=== PATIENT | male | born 1935 | race Caucasian/White ===

== ENCOUNTER 2018-01-23 09:29 | Inpatient (IN) | payer MEDICARE ==
[2018-01-23 10:03] LABS: #Lymphocytes 0.4 thou/uL (1.20-3.40); #Monocytes 0.5 thou/uL (0.11-0.59); #Neutrophils 12.9 thou/uL (1.40-6.50); %Basophils 0.2 % (0.0-1.0); %Eosinophils 0.1 % (0.0-10.0); %Lymphocytes 2.8 % (21.0-51.0); %Monocytes 3.5 % (0.0-10.0); %Neutrophils 93.4 % (42.0-75.0); Hemoglobin 15.5 g/dL (14.0-18.0); Mean Corpuscular HGB CONC 33.4 g/dL (32.0-36.0); Mean Corpuscular Volume 98.8 fl (80.0-94.0); Mean Platelet Volume 6.7 fL (7.4-10.4); Platelet Count 190 thou/uL (130-400); RBC Distribution Width 12.1 % (11.5-14.5); White Blood Cell (WBC) Count 13.8 thou/uL (4.8-10.8)
[2018-01-23 10:08] LABS: Bilirubin Small (Negative); Blood, Urine Small (Negative); Clarity CLOUDY (Clear); Glucose, Urine (Dipstick) Negative (Negative); Leukocyte Small (Negative); Protein, Urine (Dipstick) 100 mg/dL (Neg-Trace); Specific Gravity, Urine 1.038 (1.002-1.036)
[2018-01-23 10:11] LABS: Bacteria/HPF None Seen HPF (None Seen)
[2018-01-23 10:22] LABS: Nitrite Unable to Interpret (Negative)
[2018-01-23 10:23] LABS: RBC/HPF 0-3 HPF (0-3)
[2018-01-23 10:24] LABS: Crystals/HPF 1+ AMORPH URATES HPF (Negative)
[2018-01-23 10:25] LABS: Renal Epithelial None Seen HPF (0-3); Transitional Epithelial NONE SEEN HPF (0-3)
[2018-01-23 10:26] LABS: ALT (SGPT) 10 U/L (8-55); AST (SGOT) 9 U/L (5-34); Albumin 3.9 g/dL (3.4-4.8); Alkaline Phosphatase 42 U/L (40-150); Anion Gap 12 mmol/L (10-20); BUN (Urea Nitrogen) 24 mg/dL (8.4-25.7); Bilirubin, Total 2.5 mg/dL (0.2-1.2); Calc. Creatinine Clearance 0 mL/min (70-130); Calcium 9.8 mg/dL (7.8-10.44); Carbon Dioxide 30 mmol/L (23-31); Chloride 99 mmol/L (98-107); Estimated GFR-MDRD 72; Globulin 3.5 g/dL (2.4-3.5); Glucose 176 mg/dL (83-110); Lipase 5 U/L (8-78); Potassium 3.7 mmol/L (3.5-5.1); Protein, Total 7.4 g/dL (5.8-8.1); Sodium 137 mmol/L (136-145)
[2018-01-23] MEDS ORDERED: Morphine 4 MG/ML VIAL ONE (11:12)
[2018-01-23] MEDS ORDERED: Ondansetron HCl/PF 4 MG/2 ML Vial ONE (11:14)
--- NOTE | 2018-01-23 11:41 | CT ---
ABDOMEN AND PELVIC CT SCAN WITH IV CONTRAST: Date: 01/23/18 HISTORY: 82-year-old male with history of left lower quadrant abdominal pain, with concern for diverticulitis. FINDINGS: Minimal linear and parenchymal changes in the lung bases, probably representing some chronic change o r mild subsegmental atelectasis. There are two small hypodensities within the liver, too small to def initively characterize, but statistically small cysts. The pancreas, spleen, and adrenal glands are u nremarkable. No renal calculus or acute obstruction. Normal appearing appendix. Evidence for acute diverticulitis in the left colon/sigmoid colon junction. Scattered small punctate foci of extralumin al gas are noted, including some foci free within the peritoneum. There is an approximately 2.3 x 3.8 cm diameter mostly air-filled collection projecting from the colon at this level, probably an at shyam st partially confined perforation. There are abnormally dilated small bowel loops, primarily jejunum and extending into the ileum with s ome dilatation of the stomach and duodenum as well. The exact location of the transition zone is diff icult to determine, but I favor it being in the right side of the abdomen, with a decompressed disc i leum. No renal calculus or acute obstruction. IMPRESSION: Evidence for acute diverticulitis at the left colon/sigmoid colon junction with a small focus of most ly confined, mostly air and minimal fluid, probably at least a partially confined perforation with so me scattered small foci of punctate extraluminal gas including some free intraperitoneal punctate gas . The small perforation would not be amenable to percutaneous drainage. Abnormally dilated small vernon l with nondilated distal small bowel, evidence for small bowel obstruction. The exact transition poin t is difficult to ascertain, but I favor it being more in the right side of the abdomen. Tiny amount of free fluid in the abdomen. Some heterogeneous nodular opacity changes within the gallbladder rais ing the concern for possible small gallstones or sludge, without evidence for gallbladder wall disten tion or pericholecystic fluid or fat stranding. No evidence for other significant acute process. Findings discussed with Dr. Bullard at 1120 hours. CODE CR. POS: [facility]
[2018-01-23] MEDS ORDERED: Piperacillin/Tazobactam 4.5 GM in Sodium Chloride 0.9% 100 ML IVPB SCH (12:15)
[2018-01-23] MEDS ORDERED: Ondansetron HCl/PF 4 MG/2 ML Vial IVP PRN (14:17)
[2018-01-23] MEDS ORDERED: ISOVUE-370 76%-LOCM 1 ML ONE (14:27)
[2018-01-23 14:28] VITALS: BMI 32.5
[2018-01-23] MEDS ORDERED: Prevnar 13-Val Conj/PF 0.5 ML SYRINGE IM ONE (15:00)
[2018-01-23] MEDS: Heparin 5,000 UNITS/ML VIAL SC SCH ×2 (16:10→20:37)
[2018-01-23] MEDS: Sodium Chloride 0.9% 1,000 ML IV SCH (16:10)
[2018-01-23] MEDS ORDERED: hydrALAZINE 20 MG/ML VIAL SLOW IVP PRN (16:58)
[2018-01-23] MEDS ORDERED: Morphine 4 MG/ML VIAL SLOW IVP PRN ×2 (16:58)
--- NOTE | 2018-01-23 19:54 | HP ---
CHIEF COMPLAINT: Small-bowel obstruction, diverticulitis. HISTORY OF PRESENT ILLNESS: This is an 82-year-old male, who presents with a history of pain in his left lower quadrant, described as sharp, associated with abdominal bloating, nausea and vomiting. He did state that he had a bowel movement earlier today. Previous diagnosis of a left lower quadrant d iverticulitis several years ago that resolved without inpatient care. He had colonoscopy a few years ago by Dr. Villegas, which was in normal limits. He is on schedule for those. He denies chronic const ipation, diarrhea or blood in stool. Denies chronic abdominal pain or inflammatory bowel disease. Chriss adams feels better on his abdominal distention after NG tube is placed. 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 PAST SURGICAL HISTORY: Right knee replacement. MEDICINES TAKEN DAILY: Celebrex. ALLERGIES: No known drug allergies. SOCIAL HISTORY: No smoking, alcohol or other drugs. He is . REVIEW OF SYSTEMS: Ten system review of systems otherwise negative unless described above. PHYSICAL EXAMINATION: VITAL SIGNS: Blood pressure 170/93, pulse 76, respirations 16. He is afebrile at 98.7. HEENT: Sclerae are anicteric. Oropharynx is clear. NECK: No lymphadenopathy. CHEST: Clear. HEART: Regular rate and rhythm. ABDOMEN: Soft, diffusely distended and mildly tender without guarding or rebound. No abdominal or i nguinal hernias. EXTREMITIES: No ischemia or edema to extremities. IMAGING: CT scan of the abdomen and pelvis reveals acute diverticulitis confined small free air, que stion of small-bowel obstruction. LABORATORY DATA: White cell count is 13, hemoglobin 15, platelet count is 190. Sodium 137, potassiu m 3.7, creatinine 1. His UA is positive for bilirubin, leukocyte esterase, wbc's. ASSESSMENT: Acute diverticulitis, likely with secondary ileus or small-bowel obstruction. PLAN: NG tube, n.p.o., IV fluids, broad spectrum antibiotics include Zosyn. We will give him a castro ce with a few days of conservative therapy with IV antibiotics. If not improved in 24-48 hours, he m ay need operation for this, which likely would involve some sort of diversion ostomy procedure. He i s stable now with no signs of sepsis.
[2018-01-23] MEDS: Acetaminophen 1,000 MG in Premix Bag 1 BAG IVPB PRN (20:26)
[2018-01-23] MEDS ORDERED: Sodium Chloride 0.65% Nasal 44 ML BOT EA NARE PRN (20:27)
[2018-01-23] MEDS ORDERED: Oxymetazoline HCl 0.05% ( 15 ML ) NASAL PRN (20:27)
[2018-01-23] MEDS: hydrALAZINE 20 MG/ML VIAL SLOW IVP PRN (20:33)
[2018-01-23] MEDS ORDERED: Famotidine/PF 20 mg/2ml Vial SLOW IVP SCH (21:00)
[2018-01-23] MEDS: Pantoprazole 40 MG VIAL IVP SCH (21:50)
[2018-01-23] MEDS: Piperacillin/Tazobactam 4.5 GM in Sodium Chloride 0.9% 100 ML IVPB SCH (21:53)
[2018-01-24] MEDS: Piperacillin/Tazobactam 4.5 GM in Sodium Chloride 0.9% 100 ML IVPB SCH ×4 (03:20→21:56)
[2018-01-24] MEDS: hydrALAZINE 20 MG/ML VIAL SLOW IVP PRN (03:28)
[2018-01-24] MEDS: Sodium Chloride 0.9% 1,000 ML IV SCH ×2 (03:37→18:17)
[2018-01-24 05:50] LABS: #Lymphocytes 0.3 thou/uL (1.20-3.40); #Monocytes 0.6 thou/uL (0.11-0.59); #Neutrophils 6.3 thou/uL (1.40-6.50); %Eosinophils 0.1 % (0.0-10.0); %Lymphocytes 4.5 % (21.0-51.0); %Monocytes 8.3 % (0.0-10.0); %Neutrophils 87.2 % (42.0-75.0); Hemoglobin 15.7 g/dL (14.0-18.0); Mean Corpuscular HGB CONC 31.9 g/dL (32.0-36.0); Mean Corpuscular Hemoglobin 32.5 pg (27.0-31.0); Mean Platelet Volume 7.2 fL (7.4-10.4); Platelet Count 214 thou/uL (130-400); RBC Distribution Width 12.3 % (11.5-14.5); Red Blood Cell (RBC) Count 4.82 mill/uL (4.70-6.10); White Blood Cell (WBC) Count 7.2 thou/uL (4.8-10.8)
[2018-01-24 06:11] LABS: ALT (SGPT) 9 U/L (8-55); AST (SGOT) 9 U/L (5-34); Albumin 3.7 g/dL (3.4-4.8); Alkaline Phosphatase 34 U/L (40-150); Anion Gap 13 mmol/L (10-20); BUN (Urea Nitrogen) 25 mg/dL (8.4-25.7); Bilirubin, Total 2.1 mg/dL (0.2-1.2); Calc. Creatinine Clearance 90 mL/min (70-130); Calcium 9.4 mg/dL (7.8-10.44); Carbon Dioxide 29 mmol/L (23-31); Chloride 103 mmol/L (98-107); Estimated GFR-MDRD 82; Globulin 3.1 g/dL (2.4-3.5); Glucose 140 mg/dL (83-110); Potassium 3.7 mmol/L (3.5-5.1); Protein, Total 6.8 g/dL (5.8-8.1); Sodium 141 mmol/L (136-145)
[2018-01-24] MEDS: Heparin 5,000 UNITS/ML VIAL SC SCH ×3 (08:29→21:57)
--- NOTE | 2018-01-24 08:47 | PDOC.GSPN ---
Surgery Progress Note: Subj - Subjective Narrative: No complaints. Minimal pain. Wants NG out. No flatus or bm Surgery Progress Note: Obj - Vital signs Vital signs: Vital Signs - Most Recent Temp Pulse Resp BP Pulse Ox 98.3 F 92 18 159/80 H 92 L 01/24/18 07:39 01/24/18 07:39 01/24/18 07:39 01/24/18 07:39 01/24/18 07:39 - Physical Exam General: no distress Cardiovascular: regular rate and rhythm Respiratory: clear to auscultation Abdomen: soft, non tender, distended Surgery Progress Note: Results - Labs Result Diagrams: 01/24/18 05:23 01/24/18 05:23 Lab results: Laboratory Results - last 24 hr 01/24/18 01/24/18 05:23 05:23 WBC 7.2 RBC 4.82 Hgb 15.7 Hct 49.2 MCV 102.0 H MCH 32.5 H MCHC 31.9 L RDW 12.3 Plt Count 214 MPV 7.2 L Neutrophils % 87.2 H Lymphocytes % 4.5 L Monocytes % 8.3 Eosinophils % 0.1 Basophils % 0.0 Neutrophils # 6.3 Lymphocytes # 0.3 L Monocytes # 0.6 H Eosinophils # 0.0 Basophils # 0.0 Sodium 141 Potassium 3.7 Chloride 103 Carbon Dioxide 29 Anion Gap 13 BUN 25 Creatinine 0.89 Estimated GFR (MDRD) 82 Glucose 140 H Calcium 9.4 Total Bilirubin 2.1 H AST 9 ALT 9 Alkaline Phosphatase 34 L Serum Total Protein 6.8 Albumin 3.7 Globulin 3.1 Albumin/Globulin Ratio 1.2 Surgery Progress Note: A/P - Problem (1) Diverticulitis Current Visit: Yes Code(s): K57.92 - DVTRCLI OF INTEST, PART UNSP, W/O PERF OR ABSCESS W/O BLEED Status: Acute Assessment and Plan: Continue Zosyn. Not complicated. Would normally expect to resolve without surgery. In his case issue is secondary SBO which is stable but not improved. SBFT tomorrow if no significant improvement (2) Small bowel obstruction Current Visit: Yes Code(s): K56.609 - UNSP INTESTNL OBST, UNSP TO PARTIAL VERSUS COMPLETE OBST Status: Acute
[2018-01-24] MEDS: Acetaminophen 1,000 MG in Premix Bag 1 BAG IVPB PRN (09:33)
--- NOTE | 2018-01-24 14:10 | PDOC.PN ---
- Subjective Encounter Start Date: 01/24/18 Encounter Start Time: 14:00 Subjective: Feels better.. - Objective Resuscitation Status: Resuscitation Status FULL:Full Resuscitation Vital Signs & Weight: Vital Signs (12 hours) Temp Pulse Resp BP BP Pulse Ox 01/24/18 11:15 98.9 F 87 18 167/89 H 92 L 01/24/18 08:00 98.3 F 92 18 01/24/18 07:39 98.3 F 92 18 159/80 H 92 L 01/24/18 04:06 98.6 F 85 18 176/87 H 94 L 01/24/18 03:28 87 176/87 H I&O: 01/23/18 01/24/18 01/25/18 06:59 06:59 06:59 Intake Total 900 Output Total 1300 Balance -400 Result Diagrams: 01/24/18 05:23 01/24/18 05:23 Phys Exam - Physical Examination HEENT: PERRLA Neck: no JVD Respiratory: clear to auscultation bilateral Cardiovascular: RRR Gastrointestinal: soft (Tender to palpation.) Neurological: moves all 4 limbs Psychiatric: A&O x 3 Dx/Plan (1) Diverticulitis Code(s): K57.92 - DVTRCLI OF INTEST, PART UNSP, W/O PERF OR ABSCESS W/O BLEED Status: Acute Plan: Continue antibiotics.. (2) Small bowel obstruction Code(s): K56.609 - UNSP INTESTNL OBST, UNSP TO PARTIAL VERSUS COMPLETE OBST Status: Acute Plan: f/u with surgery. NGT in place. - Plan -: Continue current management... * .
[2018-01-24] MEDS: Pantoprazole 40 MG VIAL IVP SCH (21:56)
[2018-01-25] MEDS: Piperacillin/Tazobactam 4.5 GM in Sodium Chloride 0.9% 100 ML IVPB SCH ×4 (03:16→21:01)
[2018-01-25] MEDS: Sodium Chloride 0.9% 1,000 ML IV SCH ×2 (03:16→15:28)
[2018-01-25 04:31] LABS: #Lymphocytes 0.6 thou/uL (1.20-3.40); #Monocytes 0.7 thou/uL (0.11-0.59); #Neutrophils 4.6 thou/uL (1.40-6.50); %Basophils 0.1 % (0.0-1.0); %Eosinophils 0.6 % (0.0-10.0); %Lymphocytes 9.9 % (21.0-51.0); %Monocytes 11.2 % (0.0-10.0); %Neutrophils 78.3 % (42.0-75.0); Hemoglobin 14.6 g/dL (14.0-18.0); Mean Corpuscular HGB CONC 32.5 g/dL (32.0-36.0); Mean Corpuscular Hemoglobin 33.1 pg (27.0-31.0); Mean Platelet Volume 7.2 fL (7.4-10.4); Platelet Count 205 thou/uL (130-400); RBC Distribution Width 12.2 % (11.5-14.5); Red Blood Cell (RBC) Count 4.41 mill/uL (4.70-6.10); White Blood Cell (WBC) Count 5.8 thou/uL (4.8-10.8)
[2018-01-25 04:42] LABS: ALT (SGPT) 8 U/L (8-55); AST (SGOT) 14 U/L (5-34); Albumin 3.4 g/dL (3.4-4.8); Alkaline Phosphatase 31 U/L (40-150); Anion Gap 12 mmol/L (10-20); BUN (Urea Nitrogen) 30 mg/dL (8.4-25.7); Bilirubin, Total 1.7 mg/dL (0.2-1.2); Calc. Creatinine Clearance 86 mL/min (70-130); Carbon Dioxide 30 mmol/L (23-31); Chloride 105 mmol/L (98-107); Estimated GFR-MDRD 78; Globulin 2.7 g/dL (2.4-3.5); Glucose 113 mg/dL (83-110); Potassium 3.8 mmol/L (3.5-5.1); Protein, Total 6.1 g/dL (5.8-8.1); Sodium 143 mmol/L (136-145)
[2018-01-25] MEDS: Heparin 5,000 UNITS/ML VIAL SC SCH ×3 (08:03→20:40)
--- NOTE | 2018-01-25 10:20 | PRG ---
DATE OF SERVICE: 01/25/2018 SUBJECTIVE: Mr. Gould feels better with less distention. He has passed a small amount of gas wit hout bowel movement. He is starting to be hungry. OBJECTIVE: VITAL SIGNS: Blood pressure is 164/90, pulse 70, respirations 18. He is afebrile. Urine output mul tiple voids. NG output 850 overnight. ASSESSMENT: 1. Acute diverticulitis, mild to moderate, improved with normal WBC, afebrile. Pain improved. 2. Small bowel obstruction secondary to #1 with moderate persistent NG output. PLAN: Gastrografin small bowel follow through today. Even though his diverticulitis does not seem s urgical at this time, if he has persistent high NG output with no passage of Gastrografin, he may nee d surgery for the bowel obstruction. We will obtain the small bowel follow through today and follow up on those results.
--- NOTE | 2018-01-25 10:46 | PDOC.PN ---
- Subjective Encounter Start Date: 01/25/18 Encounter Start Time: 10:00 Subjective: No complaint. -: Had BM earlier. - Objective Resuscitation Status: Resuscitation Status FULL:Full Resuscitation Vital Signs & Weight: Vital Signs (12 hours) Temp Pulse Resp BP Pulse Ox 01/25/18 07:12 98.5 F 70 18 164/90 H 91 L 01/25/18 03:21 98.0 F 72 18 157/69 H 91 L 01/24/18 23:22 99.5 F 82 16 157/90 H 95 I&O: 01/24/18 01/25/18 01/26/18 06:59 06:59 06:59 Intake Total 900 900 Output Total 1300 1900 Balance -400 -1000 Result Diagrams: 01/25/18 03:15 01/25/18 03:15 Phys Exam - Physical Examination HEENT: sclera anicteric Neck: no JVD Respiratory: clear to auscultation bilateral Cardiovascular: RRR Gastrointestinal: soft, positive bowel sounds Musculoskeletal: no edema Neurological: moves all 4 limbs Psychiatric: A&O x 3 Dx/Plan (1) Diverticulitis Code(s): K57.92 - DVTRCLI OF INTEST, PART UNSP, W/O PERF OR ABSCESS W/O BLEED Status: Acute Plan: Continue antibiotics. (2) Small bowel obstruction Code(s): K56.609 - UNSP INTESTNL OBST, UNSP TO PARTIAL VERSUS COMPLETE OBST Status: Acute Plan: f/u with surgery. Comment: Had bowel movement earlier. - Plan -: Continue antibiotics. -: f/u with surgery. * .
[2018-01-25] MEDS ORDERED: MD-Gastroview 120 ML BOT ONE (14:43)
[2018-01-25] MEDS: Pantoprazole 40 MG VIAL IVP SCH (20:40)
--- NOTE | 2018-01-25 20:50 | RAD ---
SMALL BOWEL STUDY: 01/25/2018 HISTORY: Small bowel obstruction. FINDINGS: [place] Pipe view of the abdomen demonstrates a nasogastric tube in place, with the tip overlying the expect ed location of the body of the stomach. There is significant gaseous distention of multiple loops of small bowel within the abdomen. Gastrografin was administered via the nasogastric tube and, again, post oral contrast administration demonstrates multiple dilated loops of small bowel. Contrast does not significantly progress through the small bowel on a 9 hour delayed image, suggesting a small vernon l obstruction. 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 Contrast is seen in the urinary bladder, likely related to a prior contrasted study. IMPRESSION: Small bowel obstruction. While ileus is a possibility, there are more decompressed loops of small alison wel seen on prior CT examination, and findings are more suggestive of a high grade partial small vernon l obstruction. POS: [facility]
[2018-01-26] MEDS: Piperacillin/Tazobactam 4.5 GM in Sodium Chloride 0.9% 100 ML IVPB SCH ×4 (04:16→22:26)
[2018-01-26 05:18] LABS: #Lymphocytes 0.8 thou/uL (1.20-3.40); #Monocytes 0.9 thou/uL (0.11-0.59); #Neutrophils 5.4 thou/uL (1.40-6.50); %Basophils 0.1 % (0.0-1.0); %Eosinophils 0.3 % (0.0-10.0); %Lymphocytes 11.7 % (21.0-51.0); %Monocytes 13.1 % (0.0-10.0); %Neutrophils 74.9 % (42.0-75.0); Mean Corpuscular HGB CONC 32.6 g/dL (32.0-36.0); Mean Corpuscular Hemoglobin 32.6 pg (27.0-31.0); Mean Platelet Volume 6.8 fL (7.4-10.4); Platelet Count 205 thou/uL (130-400); RBC Distribution Width 12.1 % (11.5-14.5); White Blood Cell (WBC) Count 7.2 thou/uL (4.8-10.8)
[2018-01-26 05:31] LABS: ALT (SGPT) 10 U/L (8-55); AST (SGOT) 14 U/L (5-34); Albumin 3.4 g/dL (3.4-4.8); Alkaline Phosphatase 27 U/L (40-150); Anion Gap 11 mmol/L (10-20); BUN (Urea Nitrogen) 35 mg/dL (8.4-25.7); Bilirubin, Total 1.1 mg/dL (0.2-1.2); Calc. Creatinine Clearance 78 mL/min (70-130); Calcium 8.8 mg/dL (7.8-10.44); Carbon Dioxide 32 mmol/L (23-31); Chloride 108 mmol/L (98-107); Estimated GFR-MDRD 69; Globulin 2.8 g/dL (2.4-3.5); Glucose 108 mg/dL (83-110); Potassium 3.1 mmol/L (3.5-5.1); Protein, Total 6.2 g/dL (5.8-8.1); Sodium 148 mmol/L (136-145)
[2018-01-26] MEDS ORDERED: Potassium Chloride 20 MEQ/100 ML PREMIX BAG IVPB SCH (07:30)
[2018-01-26] MEDS: Sodium Chloride 0.9% 1,000 ML IV SCH (08:40)
[2018-01-26] MEDS: D5 1/2 NS w/20 mEq KCL 1,000 ML IV SCH (09:57)
[2018-01-26] MEDS: Heparin 5,000 UNITS/ML VIAL SC SCH ×3 (10:21→20:36)
--- NOTE | 2018-01-26 12:24 | PRG ---
DATE OF SERVICE: 01/26/2018 SUBJECTIVE: Mr. Gould had several bowel movements overnight. He feels less bloated. He states t hat he is passing gas. PHYSICAL EXAMINATION: VITAL SIGNS: Blood pressure 175/84, pulse 66, respirations 16. He is afebrile. NG output was eleva malachi overnight to 1100, but some of that was contrast and he has been doing lots of ice chips. ABDOMEN: Less distended with active bowel sounds and nontender. LABORATORY DATA: White blood cell count is 7, hemoglobin 14, platelet count is 205, normal different ial. Creatinine 1.03. Sodium is 148, potassium 3.1. ASSESSMENT: Small bowel follow through from yesterday showed no contrast in the colon after several hours; however, repeat film not performed this morning. ASSESSMENT: 1. Partial small bowel obstruction secondary to diverticulitis. 2. Diverticulitis, improved with normal white count, improving pain. PLAN: We will attempt to clamp NG tube. I have held off on surgery for today. Now that his bowel f unction appears to be returning, possible discontinue NG later today and start clear liquids. If he tolerates that and the NG tube is able to be discontinued, he likely will go home in the next 24-48 h ours on oral antibiotics.
[2018-01-26] MEDS: hydrALAZINE 20 MG/ML VIAL SLOW IVP PRN (13:54)
[2018-01-26] MEDS ORDERED: Artificial Tears 18 DROP/0.9 ML EA EYE PRN (17:08)
[2018-01-26] MEDS: Pantoprazole 40 MG VIAL IVP SCH (20:36)
--- NOTE | 2018-01-26 21:54 | PDOC.PN ---
- Subjective Encounter Start Date: 01/26/18 Encounter Start Time: 11:30 Patient seen and examined. No new complaints. No overnight events. No abd pain. Had BM - Objective Resuscitation Status: Resuscitation Status FULL:Full Resuscitation MAR Reviewed: Yes Vital Signs & Weight: Vital Signs (12 hours) Temp Pulse Resp BP BP Pulse Ox 01/26/18 20:00 97.7 F 78 16 147/74 H 95 01/26/18 16:50 72 148/76 H 01/26/18 16:06 73 181/96 H 01/26/18 16:00 98.1 F 73 15 181/96 H 92 L 01/26/18 13:54 68 185/97 H 01/26/18 11:30 97.6 F 68 16 185/97 H 97 I&O: 01/25/18 01/26/18 01/27/18 06:59 06:59 06:59 Intake Total 441 573 3558 Output Total 1900 2950 Balance -1000 -2049 2160 Result Diagrams: 01/27/18 03:23 01/27/18 03:23 Additional Labs: Accuchecks 01/26/18 01/26/18 18:08 12:18 POC Glucose 97 94 Phys Exam - Physical Examination Constitutional: NAD Respiratory: no wheezing, no rhonchi Cardiovascular: RRR, no rub Gastrointestinal: soft, non-tender, positive bowel sounds Musculoskeletal: no edema Dx/Plan - Plan DVT proph w/heparin, DVT proph w/SCDs IMPRESSION: 1. Acute complicated diverticulitis 2. SBO 3. Hypokalemia 4. 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 Other issues per previous notes PLAN: * Cont NG * Cont Atbx * Walking program * Replace Potassium * Cont current meds as below * Cont to monitor Review of Systems - Review of Systems Respiratory: negative: Cough, Dry, Shortness of Breath, Hemoptysis, SOB with Excertion, Pleuritic Pain, Sputum, Wheezing Cardiovascular: negative: chest pain, palpitations, orthopnea, paroxysmal nocturnal dyspnea, edema, light headedness, other - Medications/Allergies Allergies/Adverse Reactions: Allergies Allergy/AdvReac Type Severity Reaction Status Date / Time No Known Drug Allergies Allergy Verified 01/23/18 12:01 Medications: Current Medications Artificial Tears (Tears Naturale) 0 drop EA EYE PRN PRN PRN Reason: Dry Eyes Last Admin: 01/26/18 18:50 Dose: 2 drop Heparin Sodium (Porcine) (Heparin) 5,000 units SC TID [facility] Last Admin: 01/26/18 20:36 Dose: 5,000 units Hydralazine HCl (Apresoline) 10 mg SLOW IVP Q4H PRN PRN Reason: SBP Greater Than 170 Last Admin: 01/26/18 13:54 Dose: 10 mg Hydralazine HCl (Apresoline) 20 mg SLOW IVP Q6H PRN PRN Reason: SBP Greater Than 170 Last Admin: 01/26/18 16:06 Dose: 20 mg Piperacillin Sod/Tazobactam (Sod 4.5 gm/ Sodium Chloride) 100 mls @ 200 mls/hr IVPB 0400,1000,1600,2200 [facility] Last Admin: 01/26/18 16:12 Dose: 100 mls Potassium Chloride/Dextrose/Sod Cl (D5 1/2 Ns W/20 Meq Kcl) 1,000 mls @ 75 mls/ hr IV .[id number] [facility] Last Admin: 01/26/18 09:57 Dose: 1,000 mls Morphine Sulfate (Morphine) 2 mg SLOW IVP Q2H PRN PRN Reason: Mild-Moderate Pain (1-5) Morphine Sulfate (Morphine) 4 mg SLOW IVP Q2H PRN PRN Reason: Moderate to Severe Pain (6-10) Last Admin: 01/25/18 15:39 Dose: 4 mg Ondansetron HCl (Zofran) 4 mg IVP Q6H PRN PRN Reason: Nausea/Vomiting Last Admin: 01/25/18 13:03 Dose: 4 mg Oxymetazoline HCl (Oxymetazoline Hcl) 1 sprays NASAL BID PRN PRN Reason: Nasal Congestion Pantoprazole Sodium (Protonix) 40 mg IVP 2100 [facility] Last Admin: 01/26/18 20:36 Dose: 40 mg Sodium Chloride ([place] Nasal [place] 0.65%) 1 ml EA NARE TID PRN PRN Reason: Nasal Congestion
[2018-01-27] MEDS: Piperacillin/Tazobactam 4.5 GM in Sodium Chloride 0.9% 100 ML IVPB SCH ×4 (03:24→21:09)
[2018-01-27] MEDS: D5 1/2 NS w/20 mEq KCL 1,000 ML IV SCH ×2 (03:24→14:40)
[2018-01-27 04:04] LABS: #Eosinphils 0.1 thou/uL (0.0-0.7); #Lymphocytes 1.1 thou/uL (1.20-3.40); #Monocytes 0.9 thou/uL (0.11-0.59); %Basophils 0.1 % (0.0-1.0); %Eosinophils 1.3 % (0.0-10.0); %Lymphocytes 11.8 % (21.0-51.0); %Monocytes 9.4 % (0.0-10.0); %Neutrophils 77.3 % (42.0-75.0); Hemoglobin 13.9 g/dL (14.0-18.0); Mean Corpuscular HGB CONC 33.5 g/dL (32.0-36.0); Mean Corpuscular Hemoglobin 33.3 pg (27.0-31.0); Mean Corpuscular Volume 99.2 fl (80.0-94.0); Mean Platelet Volume 6.9 fL (7.4-10.4); Platelet Count 215 thou/uL (130-400); RBC Distribution Width 12.2 % (11.5-14.5); Red Blood Cell (RBC) Count 4.17 mill/uL (4.70-6.10)
[2018-01-27 04:13] LABS: ALT (SGPT) 10 U/L (8-55); AST (SGOT) 16 U/L (5-34); Albumin 3.1 g/dL (3.4-4.8); Alkaline Phosphatase 29 U/L (40-150); Anion Gap 7 mmol/L (10-20); BUN (Urea Nitrogen) 24 mg/dL (8.4-25.7); Bilirubin, Total 1.4 mg/dL (0.2-1.2); Calc. Creatinine Clearance 89 mL/min (70-130); Calcium 8.3 mg/dL (7.8-10.44); Carbon Dioxide 33 mmol/L (23-31); Chloride 105 mmol/L (98-107); Estimated GFR-MDRD 81; Globulin 2.5 g/dL (2.4-3.5); Glucose 107 mg/dL (83-110); Magnesium 2.1 mg/dL (1.6-2.6); Phosphorus 2.8 mg/dL (2.3-4.7); Protein, Total 5.6 g/dL (5.8-8.1); Sodium 142 mmol/L (136-145)
[2018-01-27] MEDS ORDERED: Potassium Chloride 20 MEQ TAB PO SCH ×2 (08:00→21:00)
[2018-01-27] MEDS: Saccharomyces boulardii 250 MG CAP PO SCH (08:58)
[2018-01-27] MEDS: Potassium Chloride 20 MEQ TAB PO SCH ×3 (08:58→16:43)
[2018-01-27] MEDS: Heparin 5,000 UNITS/ML VIAL SC SCH ×3 (08:59→21:08)
--- NOTE | 2018-01-27 11:29 | PDOC.GSPN ---
Surgery Progress Note: Subj - Subjective Narrative: No nausea, tolerated overnight with NG out Surgery Progress Note: Obj - Vital signs Vital signs: Vital Signs - Most Recent Temp Pulse Resp BP Pulse Ox 97.7 F 73 22 H 156/88 H 96 01/27/18 08:50 01/27/18 08:50 01/27/18 08:50 01/27/18 08:00 01/27/18 08:50 - Physical Exam General: no distress Cardiovascular: regular rate and rhythm Respiratory: clear to auscultation Abdomen: soft, nondistended, positive bowel sounds Surgery Progress Note: Results - Labs Result Diagrams: 01/27/18 03:23 01/27/18 03:23 Lab results: Laboratory Results - last 24 hr 01/27/18 01/27/18 03:23 03:23 WBC 9.0 RBC 4.17 L Hgb 13.9 L Hct 41.4 L MCV 99.2 H MCH 33.3 H MCHC 33.5 RDW 12.2 Plt Count 215 MPV 6.9 L Neutrophils % 77.3 H Lymphocytes % 11.8 L Monocytes % 9.4 Eosinophils % 1.3 Basophils % 0.1 Neutrophils # 7.0 H Lymphocytes # 1.1 L Monocytes # 0.9 H Eosinophils # 0.1 Basophils # 0.0 Sodium 142 Potassium 3.0 L Chloride 105 Carbon Dioxide 33 H Anion Gap 7 L BUN 24 Creatinine 0.90 Estimated GFR (MDRD) 81 Glucose 107 Calcium 8.3 Phosphorus 2.8 Magnesium 2.1 Total Bilirubin 1.4 H AST 16 ALT 10 Alkaline Phosphatase 29 L Serum Total Protein 5.6 L Albumin 3.1 L Globulin 2.5 Albumin/Globulin Ratio 1.2 Surgery Progress Note: A/P - Problem (1) Diverticulitis Current Visit: Yes Code(s): K57.92 - DVTRCLI OF INTEST, PART UNSP, W/O PERF OR ABSCESS W/O BLEED Status: Acute (2) Small bowel obstruction Current Visit: Yes Code(s): K56.609 - UNSP INTESTNL OBST, UNSP TO PARTIAL VERSUS COMPLETE OBST Status: Acute - Plan Plan: Full liquids. Diverticultitis stable
[2018-01-27] MEDS ORDERED: D5 1/2 NS w/20 mEq KCL 1,000 ML IV SCH (16:23)
--- NOTE | 2018-01-27 16:27 | PDOC.PN ---
- Subjective Encounter Start Date: 01/27/18 Encounter Start Time: 15:00 Patient seen and examined. No new complaints. No overnight events. Still has some lower abd discomfort - constant - not worse compared to yesterday - Objective Resuscitation Status: Resuscitation Status FULL:Full Resuscitation MAR Reviewed: Yes Vital Signs & Weight: Vital Signs (12 hours) Temp Pulse Resp BP Pulse Ox 01/27/18 11:15 98.0 F 64 20 169/93 H 96 01/27/18 08:50 97.7 F 73 22 H 96 01/27/18 08:00 97.7 F 73 22 H 156/88 H 96 I&O: 01/26/18 01/27/18 01/28/18 06:59 06:59 06:59 Intake Total 900 2160 Output Total 2950 Balance -2049 2160 Result Diagrams: 01/27/18 03:23 01/27/18 03:23 Additional Labs: Accuchecks 01/26/18 18:08 POC Glucose 97 Phys Exam - Physical Examination Constitutional: NAD Respiratory: no wheezing, no rales, no rhonchi Cardiovascular: RRR, no rub Gastrointestinal: soft, positive bowel sounds mild tend in lower quadrants Musculoskeletal: no edema Neurological: non-focal, moves all 4 limbs Psychiatric: A&O x 3 Dx/Plan - Plan continue antibiotics, out of bed/ambulate, DVT proph w/heparin, DVT proph w/SCDs IMPRESSION: 1. Acute complicated diverticulitis 2. SBO 3. Hypokalemia 4. 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 Other issues per previous notes PLAN: * Cont Atbx * Replace Potassium * Cont current meds as below * Cont to monitor * NG discontinued Review of Systems - Review of Systems Respiratory: negative: Cough, Dry, Shortness of Breath, Hemoptysis, SOB with Excertion, Pleuritic Pain, Sputum, Wheezing Cardiovascular: negative: chest pain, palpitations, orthopnea, paroxysmal nocturnal dyspnea, edema, light headedness, other - Medications/Allergies Allergies/Adverse Reactions: Allergies Allergy/AdvReac Type Severity Reaction Status Date / Time No Known Drug Allergies Allergy Verified 01/23/18 12:01 Medications: Current Medications Artificial Tears (Tears Naturale) 0 drop EA EYE PRN PRN PRN Reason: Dry Eyes Last Admin: 01/26/18 18:50 Dose: 2 drop Heparin Sodium (Porcine) (Heparin) 5,000 units SC TID [facility] Last Admin: 01/27/18 08:59 Dose: 5,000 units Hydralazine HCl (Apresoline) 10 mg SLOW IVP Q4H PRN PRN Reason: SBP Greater Than 170 Last Admin: 01/26/18 13:54 Dose: 10 mg Hydralazine HCl (Apresoline) 20 mg SLOW IVP Q6H PRN PRN Reason: SBP Greater Than 170 Last Admin: 01/26/18 16:06 Dose: 20 mg Piperacillin Sod/Tazobactam (Sod 4.5 gm/ Sodium Chloride) 100 mls @ 200 mls/hr IVPB 0400,1000,1600,2200 [facility] Last Admin: 01/27/18 09:00 Dose: 100 mls Potassium Chloride/Dextrose/Sod Cl (D5 1/2 Ns W/20 Meq Kcl) 1,000 mls @ 30 mls/ hr IV .Q24H [facility] Morphine Sulfate (Morphine) 2 mg SLOW IVP Q2H PRN PRN Reason: Mild-Moderate Pain (1-5) Ondansetron HCl (Zofran) 4 mg IVP Q6H PRN PRN Reason: Nausea/Vomiting Last Admin: 01/25/18 13:03 Dose: 4 mg Oxymetazoline HCl (Oxymetazoline Hcl) 1 sprays NASAL BID PRN PRN Reason: Nasal Congestion Pantoprazole Sodium (Protonix) 40 mg PO DAILY [facility] Last Admin: 01/27/18 08:58 Dose: 40 mg Potassium Chloride (K-Dur) 20 meq PO TID-WM [facility] Last Admin: 01/27/18 12:24 Dose: 20 meq Potassium Chloride (K-Dur) 20 meq PO HS [facility] Stop: 01/27/18 21:01 Saccharomyces Boulardii (Florastor) 250 mg PO DAILY [facility] Last Admin: 01/27/18 08:58 Dose: 250 mg Sodium Chloride ([place] Nasal [place] 0.65%) 1 ml EA NARE TID PRN PRN Reason: Nasal Congestion Sodium Chloride (Flush - Normal Saline) 10 ml IVF Q12HR [facility] Last Admin: 01/27/18 09:00 Dose: Not Given Sodium Chloride (Flush - Normal Saline) 10 ml IVF PRN PRN PRN Reason: Saline Flush
[2018-01-28] MEDS: Piperacillin/Tazobactam 4.5 GM in Sodium Chloride 0.9% 100 ML IVPB SCH ×2 (04:51→08:57)
[2018-01-28 05:52] LABS: #Eosinphils 0.1 thou/uL (0.0-0.7); #Lymphocytes 1.3 thou/uL (1.20-3.40); #Monocytes 0.8 thou/uL (0.11-0.59); #Neutrophils 7.6 thou/uL (1.40-6.50); %Basophils 0.1 % (0.0-1.0); %Eosinophils 1.4 % (0.0-10.0); %Lymphocytes 12.8 % (21.0-51.0); %Monocytes 8.6 % (0.0-10.0); %Neutrophils 77.1 % (42.0-75.0); Hemoglobin 14.2 g/dL (14.0-18.0); Mean Corpuscular Hemoglobin 32.6 pg (27.0-31.0); Mean Corpuscular Volume 98.6 fl (80.0-94.0); Mean Platelet Volume 6.5 fL (7.4-10.4); Platelet Count 205 thou/uL (130-400); RBC Distribution Width 12.1 % (11.5-14.5); Red Blood Cell (RBC) Count 4.35 mill/uL (4.70-6.10); White Blood Cell (WBC) Count 9.8 thou/uL (4.8-10.8)
[2018-01-28 06:14] LABS: ALT (SGPT) 12 U/L (8-55); AST (SGOT) 17 U/L (5-34); Albumin 3.1 g/dL (3.4-4.8); Alkaline Phosphatase 28 U/L (40-150); Anion Gap 11 mmol/L (10-20); BUN (Urea Nitrogen) 13 mg/dL (8.4-25.7); Bilirubin, Total 1.7 mg/dL (0.2-1.2); Calc. Creatinine Clearance 106 mL/min (70-130); Calcium 8.1 mg/dL (7.8-10.44); Carbon Dioxide 26 mmol/L (23-31); Chloride 106 mmol/L (98-107); Estimated GFR-MDRD Greater than 90; Globulin 2.4 g/dL (2.4-3.5); Glucose 102 mg/dL (83-110); Potassium 3.7 mmol/L (3.5-5.1); Protein, Total 5.5 g/dL (5.8-8.1); Sodium 139 mmol/L (136-145)
[2018-01-28] MEDS: Saccharomyces boulardii 250 MG CAP PO SCH (08:56)
[2018-01-28] MEDS: Heparin 5,000 UNITS/ML VIAL SC SCH (08:57)
[2018-01-28] MEDS: Potassium Chloride 20 MEQ TAB PO SCH (08:57)
[2018-01-28 11:43] VITALS: BP 162/84; TEMP 98.2
--- NOTE | 2018-01-29 00:04 | DIS ---
DATE OF ADMISSION: 01/23/2018 DATE OF DISCHARGE: 01/28/2018 ADMITTING DIAGNOSES: 1. Diverticulitis with microperforation. 2. Small-bowel obstruction. DISCHARGE DIAGNOSES: 1. Diverticulitis with microperforation. 2. Small-bowel obstruction. PROCEDURES: None. CONDITION AT DISCHARGE: Improved. STAFF: Yao Glass M.D. DISCHARGE MEDICINES: Include Cipro 500 twice a day, Flagyl 500 three times a day for 2 more weeks, a s well as Zofran. They were all sent to his pharmacy [facility] on . HOSPITAL COURSE: The patient was admitted with small-bowel obstruction and NG tube placed. He had d iverticulitis locally severe, but without significant diffuse perforation. He was hemodynamically st able. He had small bowel follow-through on 01/26/2018, it did not travel very far on that day; [facility], he started having lots of bowel movements overnight. NG tube was removed, started on clear liqui ds. On the day of discharge, he is tolerating a GI soft diet. He has minimal pain. His white cell count is normal. He is afebrile. Vital signs are stable. He is discharged home to resume Cipro, Fl agyl, as previously prescribed by Dr. Castellon. He will follow up with me in the office next week. If jovanny adams has recurrence of these symptoms, we will take him to the operating room. He will call me if he wo rsens at home.
== END 2018-01-28 13:04 | disposition home or self-care (01) | DRG 392 ==
LOC: ERS 09:29 → SURG A 13:56
PROVIDERS: ADMIT Internal Medicine; ATTEND Internal Medicine
DX: K57.80 Diverticulitis of intestine, part unspecified, with perforation and abscess without bleeding (principal); E66.9 Obesity, unspecified; E87.6 Hypokalemia; Z68.32 Body mass index [BMI] 32.0-32.9, adult
CPT/HCPCS: 36415; 36416; 74177; 74250; 80053; 81003; 81015; 83605; 83690; 83735; 84100; 85025; 96361; 96365; 96375; A4216; C9113; J0131; J0360; J1644; J2270; J2405; J2543; J3480; J7050

== ENCOUNTER 2020-01-08 14:56 | Emergency (ER) | payer SELFPAY ==
[2020-01-08 15:29] LABS: Bilirubin Negative (Negative); Blood, Urine Large (Negative); Glucose, Urine (Dipstick) Negative (Negative); Leukocyte Negative (Negative); Nitrite Negative (Negative); Protein, Urine (Dipstick) 100 mg/dL (Neg-Trace); Urobilinogen 0.2 mg/dL (Less than 2)
[2020-01-08 15:33] LABS: Clarity Cloudy (Clear)
[2020-01-08 15:37] LABS: Bacteria/HPF None Seen HPF (None Seen); RBC/HPF Greater than 50 HPF (0-3); Squamous Epithelial None Seen HPF (0-3); WBC/HPF 0-3 HPF (0-3)
== END 2020-01-08 16:24 | disposition home or self-care (01) ==
LOC: ERS 14:56
DX: R31.9 Hematuria, unspecified (principal); I48.91 Unspecified atrial fibrillation; M19.90 Unspecified osteoarthritis, unspecified site; Z79.899 Other long term (current) drug therapy
CPT/HCPCS: 81003; 81015; 87086; 99283

== ENCOUNTER 2021-05-09 09:59 | Outpatient (CLI) | payer MEDICARE | END 2021-05-09 10:00 | disposition home or self-care (01) | LOC: LABBT 09:59 | PROVIDERS: ATTEND Urology | DX: Z01.818 Encounter for other preprocedural examination (principal); N40.1 Benign prostatic hyperplasia with lower urinary tract symptoms; N32.81 Overactive bladder | CPT/HCPCS: 80048; 81001; 85027; 87086; 93005; 93010 ==

== ENCOUNTER 2021-06-11 19:57 | Inpatient (IN) | payer MEDICARE ==
[2021-06-11 21:07] LABS: ALT (SGPT) 14 U/L (8-55); AST (SGOT) 13 U/L (5-34); Albumin 3.7 g/dL (3.4-4.8); Alkaline Phosphatase 48 U/L (40-110); Anion Gap 16 mmol/L (10-20); BUN (Urea Nitrogen) 23 mg/dL (8.4-25.7); Bilirubin, Total 1.8 mg/dL (0.2-1.2); Calc. Creatinine Clearance 0 mL/min (70-130); Calcium 9.4 mg/dL (7.8-10.44); Carbon Dioxide 24 mmol/L (23-31); Chloride 106 mmol/L (98-107); Globulin 2.9 g/dL (2.4-3.5); Glucose 199 mg/dL (83-110); Protein, Total 6.6 g/dL (5.8-8.1); Sodium 142 mmol/L (136-145)
[2021-06-11] MEDS ORDERED: Morphine 4 MG/ML VIAL ONE ×2 (21:10→22:31)
[2021-06-11 22:03] LABS: INR-International Normal Ratio 1.3; PTT 31.6 sec (22.9-36.1); Prothrombin Time 15.9 sec (12.0-14.7)
[2021-06-11 22:08] LABS: Hemoglobin 12.6 g/dL (14.0-18.0); Mean Corpuscular HGB CONC 32.8 g/dL (32.0-36.0); Mean Corpuscular Hemoglobin 32.2 pg (27.0-31.0); Mean Platelet Volume 6.8 fL (7.4-10.4); Platelet Count 247 thou/uL (130-400); RBC Distribution Width 11.8 % (11.5-14.5); White Blood Cell (WBC) Count 20.6 thou/uL (4.8-10.8)
[2021-06-11 22:28] LABS: Band 1 % (5-11); Lymphocytes 5 % (21-51); MDiff Complete? YES; Monocytes 5 % (0-10); Neutrophil 89 % (42-75); Platelet Morphology Comment Appears Adequate; RBC Morphology Normal
[2021-06-11] MEDS ORDERED: cefTRIAXone\\ROCEPHIN 2 GM VIAL ONE (23:44)
[2021-06-12] MEDS ORDERED: Fentanyl 100 MCG/2 ML VIAL ONE (00:43)
[2021-06-12] MEDS ORDERED: Lidocaine 2% PF 5 ML VIAL ONE (00:49)
[2021-06-12] MEDS ORDERED: Dexamethasone 20 MG/5 ML VIAL ONE (00:49)
[2021-06-12] MEDS ORDERED: Ondansetron PF 4 MG/2 ML Vial ONE (00:49)
[2021-06-12] MEDS ORDERED: Rocuronium Bromide 10 MG/ML (10ML VIAL) ONE (00:49)
[2021-06-12] MEDS ORDERED: PROPOFOL 200 MG/20 ML VIAL ONE (00:49)
[2021-06-12] MEDS ORDERED: PHENYLEPHRINE-NS 100 MCG/ML 10 ML SYRINGE ONE (00:49)
[2021-06-12] MEDS ORDERED: Albumin 5% 250 ML ONE (01:09)
[2021-06-12] MEDS ORDERED: SUGAMMADEX SODIUM 200 MG/2 ML VIAL ONE (01:36)
[2021-06-12 01:57] LABS: SARS-CoV-2 NAA Rapid Test Not Detected (NotDetected)
[2021-06-12] MEDS ORDERED: Ondansetron HCl/PF 4 MG/2 ML Vial IVP PRN (02:03)
[2021-06-12 04:13] LABS: #Lymphocytes 0.5 thou/uL (1.20-3.40); #Monocytes 0.3 thou/uL (0.11-0.59); #Neutrophils 17.4 thou/uL (1.40-6.50); %Lymphocytes 2.7 % (21.0-51.0); %Monocytes 1.9 % (0.0-10.0); %Neutrophils 95.4 % (42.0-75.0); Hemoglobin 10.7 g/dL (14.0-18.0); Mean Corpuscular HGB CONC 33.1 g/dL (32.0-36.0); Mean Corpuscular HGB CONC 33.8 g/dL (32.0-36.0); Mean Corpuscular Hemoglobin 32.7 pg (27.0-31.0); Mean Corpuscular Hemoglobin 33.3 pg (27.0-31.0); Mean Corpuscular Volume 98.7 fL (78.0-98.0); Mean Platelet Volume 6.9 fL (7.4-10.4); Platelet Count 204 thou/uL (130-400); Platelet Count 205 thou/uL (130-400); RBC Distribution Width 11.7 % (11.5-14.5); RBC Distribution Width 11.8 % (11.5-14.5); Red Blood Cell (RBC) Count 3.21 mill/uL (4.70-6.10); Red Blood Cell (RBC) Count 3.27 mill/uL (4.70-6.10); White Blood Cell (WBC) Count 18.3 thou/uL (4.8-10.8)
[2021-06-12 04:26] LABS: Lactic Acid 1.5 mmol/L (0.5-2.2)
[2021-06-12 04:29] LABS: Anion Gap 12 mmol/L (10-20); BUN (Urea Nitrogen) 25 mg/dL (8.4-25.7); Calc. Creatinine Clearance 0 mL/min (70-130); Calcium 8.4 mg/dL (7.8-10.44); Carbon Dioxide 25 mmol/L (23-31); Chloride 106 mmol/L (98-107); Glucose 157 mg/dL (83-110); Potassium 5.4 mmol/L (3.5-5.1); Sodium 138 mmol/L (136-145)
[2021-06-12] MEDS ORDERED: Bisacodyl 5 MG TAB PO PRN (08:04)
[2021-06-12] MEDS ORDERED: Acetaminophen 325 MG TAB PO PRN (08:04)
[2021-06-12] MEDS ORDERED: Loperamide HCl 2 MG CAP PO PRN (08:04)
[2021-06-12] MEDS ORDERED: Senokot S 8.6-50 MG TAB PO PRN (08:04)
[2021-06-12] MEDS ORDERED: HYDROcodone/Acetaminophen 5/325 mg Tablet PO PRN (08:04)
[2021-06-12] MEDS ORDERED: Ondansetron ODT 4 MG TAB PO PRN (08:04)
[2021-06-12] MEDS ORDERED: Zolpidem Tartrate 5 MG TAB PO PRN (08:04)
[2021-06-12] MEDS ORDERED: Ondansetron PF 4 MG/2 ML Vial IVP PRN (08:04)
[2021-06-12] MEDS ORDERED: Guaifenesin DM 100-10/5 ML UDCUP PO PRN (08:04)
[2021-06-12] MEDS ORDERED: Calcium Carbonate 500 MG ChewTAB PO PRN (08:04)
[2021-06-12] MEDS ORDERED: Famotidine 20 MG TAB ONE (09:20)
[2021-06-12] MEDS: Famotidine 20 MG TAB PO SCH ×2 (09:37→20:11)
[2021-06-12 09:43] VITALS: BMI 29.9
[2021-06-12 15:15] LABS: #Monocytes 1.2 thou/uL (0.11-0.59); #Neutrophils 11.5 thou/uL (1.40-6.50); %Eosinophils 0.1 % (0.0-10.0); %Lymphocytes 7.1 % (21.0-51.0); %Monocytes 8.6 % (0.0-10.0); %Neutrophils 84.2 % (42.0-75.0); Hemoglobin 9.6 g/dL (14.0-18.0); Mean Corpuscular HGB CONC 31.6 g/dL (32.0-36.0); Mean Corpuscular Hemoglobin 31.1 pg (27.0-31.0); Mean Corpuscular Volume 98.6 fL (78.0-98.0); Mean Platelet Volume 6.6 fL (7.4-10.4); Platelet Count 202 thou/uL (130-400); RBC Distribution Width 11.9 % (11.5-14.5); Red Blood Cell (RBC) Count 3.09 mill/uL (4.70-6.10); White Blood Cell (WBC) Count 13.6 thou/uL (4.8-10.8)
[2021-06-12 15:28] LABS: ALT (SGPT) 10 U/L (8-55); AST (SGOT) 9 U/L (5-34); Albumin 3.3 g/dL (3.4-4.8); Alkaline Phosphatase 38 U/L (40-110); Anion Gap 11 mmol/L (10-20); BUN (Urea Nitrogen) 26 mg/dL (8.4-25.7); Bilirubin, Total 1.6 mg/dL (0.2-1.2); Calc. Creatinine Clearance 63 mL/min (70-130); Calcium 8.5 mg/dL (7.8-10.44); Carbon Dioxide 27 mmol/L (23-31); Chloride 104 mmol/L (98-107); Globulin 2.7 g/dL (2.4-3.5); Glucose 121 mg/dL (83-110); Potassium 4.7 mmol/L (3.5-5.1); Sodium 137 mmol/L (136-145)
[2021-06-12] MEDS ORDERED: cefTRIAXone\\ROCEPHIN 1 GM in Sodium Chloride 0.9% 100 ML IVPB SCH (23:59)
[2021-06-13 05:12] VITALS: TEMP 97.7
[2021-06-13] MEDS ORDERED: GUAIFENESIN SF SOLN 200 MG/10 ML UDCUP PO PRN (07:25)
[2021-06-13] MEDS ORDERED: Benzonatate 100 MG CAP PO PRN (07:25)
[2021-06-13] MEDS ORDERED: hydrALAZINE 20 MG/ML VIAL SLOW IVP PRN (07:25)
[2021-06-13] MEDS ORDERED: Loratadine 10 MG TAB PO PRN (07:25)
[2021-06-13] MEDS ORDERED: Sodium Chloride 0.65% Nasal 44 ML BOT EA NARE PRN (07:25)
[2021-06-13] MEDS ORDERED: Cepastat Lozenges 1 LOZ PO PRN (07:25)
[2021-06-13] MEDS ORDERED: Artificial Tear Sol 15 ML BOT EA EYE PRN (07:25)
[2021-06-13] MEDS: Famotidine 20 MG TAB PO SCH (09:24)
[2021-06-13 11:54] VITALS: BP 100/65
== END 2021-06-13 14:41 | disposition home or self-care (01) | DRG 666 ==
LOC: ERS 19:57 → ERHOLD 23:30 → PACU-TCU 06-12 03:23 → OBSVTOIN 06-12 10:54 → SURG B 06-12 16:08
PROVIDERS: ADMIT Internal Medicine; ATTEND Internal Medicine
PROC: 0T9B70Z Drainage of Bladder with Drainage Device, Via Natural or Artificial Opening (ICD-10-PCS; 2021-06-11)
PROC: 0V508ZZ Destruction of Prostate, Via Natural or Artificial Opening Endoscopic (ICD-10-PCS; principal; 2021-06-12)
PROC: 0T5C8ZZ Destruction of Bladder Neck, Via Natural or Artificial Opening Endoscopic (ICD-10-PCS; 2021-06-12)
PROC: 0TCB8ZZ Extirpation of Matter from Bladder, Via Natural or Artificial Opening Endoscopic (ICD-10-PCS; 2021-06-12)
DX: R33.8 Other retention of urine (principal); N13.8 Other obstructive and reflux uropathy; D68.32 Hemorrhagic disorder due to extrinsic circulating anticoagulants; N40.1 Benign prostatic hyperplasia with lower urinary tract symptoms; N32.89 Other specified disorders of bladder; R31.0 Gross hematuria; D72.829 Elevated white blood cell count, unspecified; I48.91 Unspecified atrial fibrillation; M19.90 Unspecified osteoarthritis, unspecified site; Z20.822 Contact with and (suspected) exposure to COVID-19; Z79.01 Long term (current) use of anticoagulants; Z90.89 Acquired absence of other organs
CPT/HCPCS: 36415; 80048; 80053; 83605; 85025; 85027; 85610; 85730; 86850; 86900; 86901; 87040; 93005; 96365; 96372; 96375; G0378; J0696; J1100; J2001; J2270; J2405; J2704; J3010; J3490; P9045; U0002; U0005

== ENCOUNTER 2021-06-27 04:26 | Inpatient (IN) | payer MEDICARE ==
[2021-06-27] MEDS ORDERED: Morphine 4 MG/ML VIAL ONE (06:38)
[2021-06-27] MEDS ORDERED: Ondansetron ODT 8 MG TAB ONE (06:38)
[2021-06-27 07:45] LABS: #Lymphocytes 0.6 thou/uL (1.20-3.40); #Monocytes 0.4 thou/uL (0.11-0.59); #Neutrophils 12.1 thou/uL (1.40-6.50); %Basophils 0.1 % (0.0-1.0); %Eosinophils 0.2 % (0.0-10.0); %Lymphocytes 4.4 % (21.0-51.0); %Monocytes 3.2 % (0.0-10.0); %Neutrophils 92.2 % (42.0-75.0); Hemoglobin 10.4 g/dL (14.0-18.0); Mean Corpuscular HGB CONC 32.1 g/dL (32.0-36.0); Mean Corpuscular Hemoglobin 32.6 pg (27.0-31.0); Mean Platelet Volume 6.2 fL (7.4-10.4); Platelet Count 237 thou/uL (130-400); RBC Distribution Width 13.8 % (11.5-14.5); Red Blood Cell (RBC) Count 3.19 mill/uL (4.70-6.10); White Blood Cell (WBC) Count 13.1 thou/uL (4.8-10.8)
[2021-06-27 08:04] LABS: Anion Gap 12 mmol/L (10-20); BUN (Urea Nitrogen) 24 mg/dL (8.4-25.7); Calc. Creatinine Clearance 0 mL/min (70-130); Calcium 9.3 mg/dL (7.8-10.44); Carbon Dioxide 27 mmol/L (23-31); Chloride 106 mmol/L (98-107); Glucose 155 mg/dL (83-110); Potassium 4.4 mmol/L (3.5-5.1); Sodium 141 mmol/L (136-145)
[2021-06-27] MEDS ORDERED: Docusate 100 MG CAP PO PRN (08:46)
[2021-06-27] MEDS ORDERED: hydrALAZINE 20 MG/ML VIAL SLOW IVP PRN (08:46)
[2021-06-27] MEDS ORDERED: Ondansetron PF 4 MG/2 ML Vial IVP PRN (08:46)
[2021-06-27] MEDS ORDERED: diphenhydrAMINE 50 MG/ML VIAL IVP PRN (08:46)
[2021-06-27] MEDS ORDERED: Acetaminophen 500 MG TAB PO PRN (08:46)
[2021-06-27] MEDS ORDERED: Zolpidem Tartrate 5 MG TAB PO PRN (08:46)
[2021-06-27] MEDS: Flecainide 50 MG TAB PO SCH ×2 (09:55→22:20)
[2021-06-27] MEDS: Donepezil HCl 10 MG TAB PO SCH (09:55)
[2021-06-27] MEDS ORDERED: HYDROcodone/Acetaminophen 5/325 mg Tablet ONE (10:03)
[2021-06-27] MEDS ORDERED: cefTRIAXone\\ROCEPHIN 1 GM VIAL ONE (10:03)
[2021-06-27] MEDS ORDERED: Famotidine/PF 20 mg/2ml Vial ONE (10:04)
[2021-06-27] MEDS ORDERED: Famotidine 20 MG TAB ONE (10:04)
[2021-06-27] MEDS: HYDROcodone/Acetaminophen 5/325 mg Tablet PO PRN ×2 (10:15→22:41)
[2021-06-27] MEDS: Famotidine/PF 20 mg/2ml Vial SLOW IVP SCH ×2 (10:15→22:20)
[2021-06-27] MEDS: cefTRIAXone\\ROCEPHIN 1 GM in Sodium Chloride 0.9% 100 ML IVPB SCH (10:15)
[2021-06-27] MEDS: Sodium Chloride 0.9% 1,000 ML IV SCH ×2 (10:15→22:20)
[2021-06-27 13:17] LABS: SARS-CoV-2 NAA Rapid Test Not Detected (NotDetected)
[2021-06-27] MEDS: Hyoscyamine Sulfate SL 0.125 mg Tablet SL SCH (16:35)
[2021-06-28 04:39] VITALS: BMI 29.2
[2021-06-28] MEDS: Hyoscyamine Sulfate SL 0.125 mg Tablet SL SCH ×5 (07:08→16:56)
[2021-06-28] MEDS: Sodium Chloride 0.9% 1,000 ML IV SCH ×2 (07:09→14:45)
[2021-06-28] MEDS: HYDROcodone/Acetaminophen 5/325 mg Tablet PO PRN ×3 (08:28→16:19)
[2021-06-28] MEDS: Flecainide 50 MG TAB PO SCH ×2 (08:28→20:26)
[2021-06-28] MEDS: Famotidine/PF 20 mg/2ml Vial SLOW IVP SCH ×2 (08:28→20:26)
[2021-06-28] MEDS: Donepezil HCl 10 MG TAB PO SCH (08:28)
[2021-06-28] MEDS: cefTRIAXone\\ROCEPHIN 1 GM in Sodium Chloride 0.9% 100 ML IVPB SCH (08:28)
[2021-06-28 08:53] LABS: #Basophils 0.1 thou/uL (0.0-0.2); #Eosinphils 0.3 thou/uL (0.0-0.7); #Lymphocytes 1.5 thou/uL (1.20-3.40); #Monocytes 0.5 thou/uL (0.11-0.59); #Neutrophils 5.1 thou/uL (1.40-6.50); %Basophils 0.9 % (0.0-1.0); %Eosinophils 4.1 % (0.0-10.0); %Lymphocytes 19.5 % (21.0-51.0); %Monocytes 6.9 % (0.0-10.0); %Neutrophils 68.6 % (42.0-75.0); Hemoglobin 9.1 g/dL (14.0-18.0); Mean Corpuscular HGB CONC 30.6 g/dL (32.0-36.0); Mean Corpuscular Hemoglobin 31.4 pg (27.0-31.0); Mean Platelet Volume 6.5 fL (7.4-10.4); Platelet Count 216 thou/uL (130-400); RBC Distribution Width 13.8 % (11.5-14.5); White Blood Cell (WBC) Count 7.5 thou/uL (4.8-10.8)
[2021-06-28 09:12] LABS: Anion Gap 9 mmol/L (10-20); BUN (Urea Nitrogen) 20 mg/dL (8.4-25.7); Calc. Creatinine Clearance 81 mL/min (70-130); Calcium 8.5 mg/dL (7.8-10.44); Carbon Dioxide 29 mmol/L (23-31); Chloride 106 mmol/L (98-107); Glucose 97 mg/dL (83-110); Potassium 4.2 mmol/L (3.5-5.1); Sodium 140 mmol/L (136-145)
[2021-06-28] MEDS ORDERED: Oxybutynin ER 5 MG TAB PO SCH (13:30)
[2021-06-29] MEDS: Hyoscyamine Sulfate SL 0.125 mg Tablet SL SCH ×4 (00:57→18:48)
[2021-06-29] MEDS: Sodium Chloride 0.9% 1,000 ML IV SCH ×2 (01:03→09:44)
[2021-06-29] MEDS ORDERED: Oxybutynin ER 5 MG TAB PO SCH (09:00)
[2021-06-29] MEDS: Famotidine/PF 20 mg/2ml Vial SLOW IVP SCH (09:28)
[2021-06-29] MEDS: Flecainide 50 MG TAB PO SCH (09:28)
[2021-06-29] MEDS: Donepezil HCl 10 MG TAB PO SCH (09:28)
[2021-06-29] MEDS: cefTRIAXone\\ROCEPHIN 1 GM in Sodium Chloride 0.9% 100 ML IVPB SCH (09:28)
[2021-06-29] MEDS ORDERED: Fentanyl 100 MCG/2 ML VIAL ONE (14:39)
[2021-06-29] MEDS ORDERED: Famotidine/PF 20 mg/2ml Vial ONE (14:39)
[2021-06-29] MEDS ORDERED: Lidocaine 1% PF 5 ML VIAL ONE (14:51)
[2021-06-29] MEDS ORDERED: PHENYLEPHRINE-NS 100 MCG/ML 10 ML SYRINGE ONE (14:51)
[2021-06-29] MEDS ORDERED: Metoclopramide HCl 10 MG/2 ML VIAL ONE (14:51)
[2021-06-29] MEDS ORDERED: PROPOFOL 200 MG/20 ML VIAL ONE (14:51)
[2021-06-29] MEDS ORDERED: Ondansetron PF 4 MG/2 ML Vial ONE (14:51)
[2021-06-29] MEDS ORDERED: Phenazopyridine HCl 100 MG TAB ONE (15:44)
[2021-06-29 17:42] VITALS: TEMP 97.6
[2021-06-29] MEDS ORDERED: Phenazopyridine HCl 100 MG TAB PO SCH (18:00)
[2021-06-29 18:29] VITALS: BP 146/70
== END 2021-06-29 18:55 | disposition home or self-care (01) | DRG 909 ==
LOC: ERS 04:26 → ERHOLD 10:01 → T4-B 18:09 → OBSVTOIN 06-28 17:28
PROVIDERS: ADMIT Urology; ATTEND Urology
PROC: 3E1K78Z Irrigation of Genitourinary Tract using Irrigating Substance, Via Natural or Artificial Opening (ICD-10-PCS; principal; 2021-06-27)
PROC: 0T2BX0Z Change Drainage Device in Bladder, External Approach (ICD-10-PCS; 2021-06-27)
PROC: 0W3R8ZZ Control Bleeding in Genitourinary Tract, Via Natural or Artificial Opening Endoscopic (ICD-10-PCS; 2021-06-29)
PROC: 0TCB8ZZ Extirpation of Matter from Bladder, Via Natural or Artificial Opening Endoscopic (ICD-10-PCS; 2021-06-29)
DX: N99.820 Postprocedural hemorrhage of a genitourinary system organ or structure following a genitourinary system procedure (principal); Z20.822 Contact with and (suspected) exposure to COVID-19; F03.90 Unspecified dementia, unspecified severity, without behavioral disturbance, psychotic disturbance, mood disturbance, and anxiety; I48.91 Unspecified atrial fibrillation; N40.0 Benign prostatic hyperplasia without lower urinary tract symptoms; Y83.8 Other surgical procedures as the cause of abnormal reaction of the patient, or of later complication, without mention of misadventure at the time of the procedure; Z79.899 Other long term (current) drug therapy
CPT/HCPCS: 36415; 51702; 80048; 85025; 94760; 96372; 96374; 96376; G0378; J0696; J2270; J2405; J2704; J2765; J3010; J3490; J7050; Q0162; S0028; U0002

== ENCOUNTER 2022-11-29 13:58 | Outpatient (CLI) | payer MEDICARE | END 2022-11-29 13:59 | disposition home or self-care (01) | LOC: BICCT 13:58 | PROVIDERS: ATTEND Psychiatry & Neurology Neurology | DX: R41.3 Other amnesia (principal); R22.0 Localized swelling, mass and lump, head; J34.89 Other specified disorders of nose and nasal sinuses; H74.8X1 Other specified disorders of right middle ear and mastoid | CPT/HCPCS: 70450 ==